=== PATIENT | male | born 1960 | race Caucasian/White ===

== ENCOUNTER 2022-05-13 06:01 | Observation (INO) ==
[2022-05-13] MEDS ORDERED: CeFAZolin Syr 3,000MG/30 ML 3,000 MG/30 ML SYRINGE IVPB ONE (06:43)
[2022-05-13] MEDS ORDERED: Ringers Solution, Lactated 1,000 ML IVC SCH (06:45)
[2022-05-13] MEDS ORDERED: Famotidine 20 MG TABLET PO ONE (07:00)
[2022-05-13] MEDS ORDERED: *HR* OxyCODONE Immed Rel 5 MG TABLET PO ONE (07:00)
[2022-05-13] MEDS ORDERED: Pregabalin 75 MG CAPSULE PO ONE (07:00)
[2022-05-13] MEDS ORDERED: *HR* Midazolam HCl 2 MG/2 ML VIAL ONE (07:11)
[2022-05-13] MEDS ORDERED: *HR* Propofol 200 MG/20 ML VIAL IVP ONE (07:11)
[2022-05-13] MEDS ORDERED: *HR* FentaNYL (PF) 100 MCG/2 ML VIAL ONE (07:11)
[2022-05-13] MEDS ORDERED: *HR* Rocuronium Bromide 50 MG/5 ML VIAL ONE (07:12)
[2022-05-13] MEDS ORDERED: *HR* Succinylcholine 200 MG/10 ML VIAL IVP ONE (07:12)
[2022-05-13] MEDS ORDERED: Lidocaine -MPF 2% 2 ML VIAL ONE (07:12)
[2022-05-13] MEDS ORDERED: Vancomycin 1,000 MG VIAL ONE (07:15)
[2022-05-13] MEDS ORDERED: *HR* Phenylephrine 10 MG/ML VIAL ONE (07:20)
[2022-05-13] MEDS ORDERED: *HR* Remifentanil 2 MG VIAL IVP ONE (07:22)
[2022-05-13] MEDS: tiZANidine 4 MG TABLET PO SCH ×2 (07:28→18:23)
[2022-05-13] MEDS ORDERED: *HR* Remifentanil 1 MG VIAL IVP ONE (10:37)
[2022-05-13] MEDS ORDERED: *HR* HYDROMORPHONE 2 MG/ML VIAL ONE (11:20)
[2022-05-13] MEDS ORDERED: Ondansetron 4 MG/2 ML VIAL ONE (11:21)
[2022-05-13] MEDS: *HR* HYDROmorphone PF 0.5 MG/0.5 ML SYRINGE IVP PRN ×4 (11:57→12:24)
[2022-05-13] MEDS ORDERED: *HR* OxyCODONE Immed Rel 5 MG TABLET PO PRN (12:41)
[2022-05-13] MEDS ORDERED: *HR* HYDROcodone/Acet 7.5/325 mg TABLET PO ONE (13:33)
[2022-05-13] MEDS ORDERED: Naloxone 0.4 MG/ML INJ IVP PRN (15:42)
[2022-05-13] MEDS ORDERED: Ondansetron 4 MG/2 ML VIAL IVP PRN (15:42)
[2022-05-13] MEDS ORDERED: Acetaminophen 325 MG TABLET PO PRN (15:42)
[2022-05-13] MEDS: ceFAZolin 3,000 MG in 0.9 % Sodium Chloride 100 ML IVPB SCH ×2 (17:23→23:28)
[2022-05-13] MEDS: Gabapentin 300 MG CAPSULE PO SCH ×2 (17:27→21:01)
[2022-05-13] MEDS: *HR* OxyCODONE Immed Rel 5 MG TABLET PO PRN ×2 (19:17→23:29)
[2022-05-13] MEDS: Ringers Solution, Lactated 1,000 ML IVC SCH ×2 (21:01→23:28)
[2022-05-14] MEDS: *HR* OxyCODONE Immed Rel 5 MG TABLET PO PRN ×3 (04:26→22:54)
[2022-05-14] MEDS: *HR* Heparin 5,000 UNIT/ML VIAL SQ SCH ×2 (05:57→16:28)
[2022-05-14] MEDS: Gabapentin 300 MG CAPSULE PO SCH ×3 (08:27→20:24)
[2022-05-14] MEDS: ceFAZolin 3,000 MG in 0.9 % Sodium Chloride 100 ML IVPB SCH ×2 (08:32→16:51)
[2022-05-14] MEDS: Ringers Solution, Lactated 1,000 ML IVC SCH (08:56)
[2022-05-14] MEDS ORDERED: NON-FORMULARY MEDICATION 1 EACH EACH (Tadalafil [Cialis] 5 MG Tablet) PO SCH (09:00)
[2022-05-14] MEDS ORDERED: Simethicone 80 MG TAB.CHEW PO PRN (09:38)
[2022-05-14] MEDS ORDERED: tiZANidine 4 MG TABLET PO PRN (09:38)
[2022-05-14] MEDS: Ondansetron 4 MG/2 ML VIAL IVP PRN (11:16)
[2022-05-14] MEDS ORDERED: *HR* Promethazine 25 MG/ML VIAL IM PRN (12:58)
[2022-05-14] MEDS: *HR* HYDROcodone/Acet 5/325 mg TABLET PO PRN (16:35)
[2022-05-15] MEDS: ceFAZolin 3,000 MG in 0.9 % Sodium Chloride 100 ML IVPB SCH ×3 (00:57→18:43)
[2022-05-15] MEDS: *HR* Heparin 5,000 UNIT/ML VIAL SQ SCH ×2 (05:21→18:44)
[2022-05-15] MEDS: Ringers Solution, Lactated 1,000 ML IVC SCH ×3 (07:41→18:43)
[2022-05-15] MEDS: Famotidine 20 MG TABLET PO SCH ×2 (09:26→20:44)
[2022-05-15] MEDS: Ondansetron 4 MG/2 ML VIAL IVP PRN (09:26)
[2022-05-15] MEDS: Gabapentin 300 MG CAPSULE PO SCH ×3 (09:27→20:45)
[2022-05-15] MEDS: *HR* HYDROcodone/Acet 5/325 mg TABLET PO PRN (09:41)
[2022-05-15] MEDS: *HR* OxyCODONE Immed Rel 5 MG TABLET PO PRN (20:44)
[2022-05-16] MEDS: *HR* Heparin 5,000 UNIT/ML VIAL SQ SCH (06:16)
[2022-05-16 07:37] VITALS: PULSE 58
[2022-05-16] MEDS: Gabapentin 300 MG CAPSULE PO SCH ×2 (07:50→15:17)
[2022-05-16] MEDS: Famotidine 20 MG TABLET PO SCH (07:50)
[2022-05-16] MEDS: *HR* OxyCODONE Immed Rel 5 MG TABLET PO PRN (07:50)
[2022-05-16 14:39] VITALS: BP 129/90; TEMP 98.2; O2SAT 95
== END 2022-05-16 15:40 | disposition home or self-care (01) ==
LOC: 4WAOSI 06:01 → SDCAOSI 06:01 → 4WAOSI 15:42
PROVIDERS: ADMIT Orthopaedic Surgery Orthopaedic Surgery of the Spine; ATTEND Orthopaedic Surgery Orthopaedic Surgery of the Spine